=== PATIENT | female | born 1980 | race Caucasian/White ===

== ENCOUNTER → 2020-10-25 11:37 | Outpatient (CLI) | payer BC, SELFPAY ==
--- NOTE | ~2020-10-25 | US_ITS ---
EXAMINATION: US pelvic complete w TV DATE: 10/25/2020 12:06 INDICATION: Uterine hypertrophy Comparison:No prior studies for comparison. TECHNIQUE: Multiple transabdominal and endovaginal sonographic images of the pelvis performed. FINDINGS: The uterus measures 8.9 x 4.3 x 6.4 cm. There are multiple uterine fibroids, largest on the right measuring 3.3 cm maximum dimension. The endometrial complex measures 4.5 mm. There is a complex partially cystic mass in the right adnexa measuring 8.8 x 6 x 5.6 cm. The left ova ry is unremarkable measuring 2.6 x 1.6 x 1.7 cm. There is no free fluid in the pelvis. There are no abnormal masses seen on either side. IMPRESSION: 1. Complex partially cystic 8.8 cm right adnexal mass, likely ovarian. Although this may represent a complex functional cyst, other etiologies such as cystadenoma/cystadenocarcinoma should be considered . Recommend follow-up clinical evaluation. 2: Multiple uterine fibroids, largest measuring 3.3 x 3.1 x 2.7 cm paracentral to the right. Reviewed, dictated and finalized at location B. NESS CASE ANALYST IMPRESSION: 1. Complex partially cystic 8.8 cm right adnexal mass, likely ovarian. Although this may represent a complex functional cyst, other etiologies such as cystade noma/cystadenocarcinoma should be considered. Recommend follow-up clinical eval uation. 2: Multiple uterine fibroids, largest measuring 3.3 x 3.1 x 2.7 cm paracentral to the right.
--- NOTE | ~2020-10-25 | MM_ITS ---
EXAMINATION: MM screening keke BI w kavon HISTORY: Screening mammogram TECHNIQUE: Craniocaudal and mediolateral oblique 3-D tomosynthesis images were obtained and synthetic 2-D images were generated. CAD analysis was submitted and interpreted. COMPARISON: No prior mammogram is available for comparison at this institution. BREAST PARENCHYMAL COMPOSITION: There are scattered areas of fibroglandular density. FINDINGS: There is a 10 mm circumscribed low-density opacity at approximately 6:00 position of the ri ght breast. Likely benign, but diagnostic mammogram and ultrasound are recommended for more definitiv e confirmation. Otherwise there is no evidence of suspicious mass, calcification, or architectural distortion to sugg est malignancy in either breast. IMPRESSION: 1. 10 mm right breast mass at approximately 6:00 2. Diagnostic right mammogram and targeted 6:00 right breast ultrasound are recommended BI-RADS Category 0: Incomplete: Needs additional imaging evaluation. Reviewed, dictated and finalized at location A. TAL PRODUCER IMPRESSION: 1. 10 mm right breast mass at approximately 6:00 2. Diagnostic right mammogram and targeted 6:00 right breast ultrasound are rec ommended BI-RADS Category 0: Incomplete: Needs additional imaging evaluation.
== END ==
PROVIDERS: PCP Internal Medicine; Visit Provider Obstetrics & Gynecology
DX: Z12.31 Encounter for screening mammogram for malignant neoplasm of breast (principal); N85.2 Hypertrophy of uterus; R92.8 Other abnormal and inconclusive findings on diagnostic imaging of breast; D25.9 Leiomyoma of uterus, unspecified
CPT/HCPCS: 76830; 76856; 77063; 77067

== ENCOUNTER 2020-11-14 10:04 | Outpatient (CLI) | payer BC, SELFPAY ==
[2020-11-17 03:26] LABS: CA-125 22 U/mL (<35)
== END 2020-11-14 10:05 | disposition home or self-care (01) ==
PROVIDERS: PCP Internal Medicine; Visit Provider Obstetrics & Gynecology
DX: N83.209 Unspecified ovarian cyst, unspecified side (principal)
CPT/HCPCS: 36415; 86304

== ENCOUNTER 2020-11-15 12:26 | Outpatient (CLI) | payer BC, SELFPAY ==
--- NOTE | ~2020-11-15 | MMUS_ITS ---
EXAMINATION: MM diagnostic mammo unilat RT, US breast RT limited HISTORY: Follow-up right breast mass TECHNIQUE: Additional 3-D tomosynthesis images of the right breast were performed and synthetic 2-D i mages were generated. CAD analysis was submitted and interpreted. High resolution right breast ultras ound was performed. COMPARISON: 10/25/2020 BREAST PARENCHYMAL COMPOSITION: Breast composed of scattered areas of fibroglandular density. FINDINGS: MAMMOGRAPHIC FINDINGS: There is a 9 mm mass in the lower central aspect of the right breast. There are no suspicious calcifi cations or architectural distortion. ULTRASOUND: Limited right breast ultrasound: At 6:00, 5 cm from the nipple, there is an 8 mm cyst corresponding t o the mammographic mass. No other masses identified. IMPRESSION: 1. No evidence for malignancy in the right breast. Benign cysts. 2. Routine yearly screening mammogram and regular clinical breast examination are recommended. BI-RADS Category 2: Benign finding(s). Reviewed, dictated and finalized at location A. ICE TRANSFORMER REPAIR SUPERVISOR IMPRESSION: 1. No evidence for malignancy in the right breast. Benign cysts. 2. Routine yearly screening mammogram and regular clinical breast examination a re recommended. BI-RADS Category 2: Benign finding(s).
== END 2020-11-15 12:27 | disposition home or self-care (01) ==
PROVIDERS: PCP Internal Medicine; Visit Provider Obstetrics & Gynecology
DX: R92.8 Other abnormal and inconclusive findings on diagnostic imaging of breast (principal)
CPT/HCPCS: 76642; 77065

== ENCOUNTER → 2021-03-14 17:12 | Outpatient (CLI) | payer BC, SELFPAY ==
--- NOTE | ~2021-03-14 | US_ITS ---
EXAMINATION: US pelvic complete w TV EXAM DATE: 03/14/2021 17:51 INDICATION: N94.89 - Other specified conditions associated with female. Right ovarian complex cystic mass on prior study TECHNIQUE: Pelvic transabdominal and transvaginal sonogram was performed. There are multiple graysca le and Doppler images available for interpretation. Comparison is made to prior examination from 2020. FINDINGS: Uterus measures 7.0 x 4.9 x 5.0 cm, with several regions consistent with fibroids measurin g up to 4 cm. Endometrial stripe measures 4 mm, within normal limits. There is no free pelvic fluid. Right adnexa: Right ovary measures 8.3 x 6.9 x 7.7 cm, has complex cystic appearance with some region s of shadowing most likely calcification. Given that there is evidence of fluid, soft tissue echogeni city and calcification, this is most likely a teratoma. Noncontrast CT could be confirmatory of that histology but at its size, surgical resection could also be considered. Ovarian vascular flow confirm ed. Left adnexa: The ovary is not identified. There is no adnexal mass. IMPRESSION: Complex cystic right ovarian mass most likely benign dermoid; noncontrast pelvic CT could be confirmatory. Fibroids. Reviewed, dictated and finalized at location A. IMPRESSION: Complex cystic right ovarian mass most likely benign dermoid; nonco ntrast pelvic CT could be confirmatory. Fibroids.
== END ==
PROVIDERS: Visit Provider Obstetrics & Gynecology
DX: N83.201 Unspecified ovarian cyst, right side (principal)
CPT/HCPCS: 76830; 76856

== ENCOUNTER 2021-03-25 18:58 | Emergency (ER) | payer BC, SELFPAY ==
--- NOTE | 2021-03-25 19:00 | ED.EAR ---
HPI - Ear Problem General Chief complaint: Ear Stated complaint: earache Time Seen by Provider: 03/25/21 19:00 Source: patient and RN notes reviewed History of Present Illness HPI Narrative: Patient is a 40-year-old female who presents the urgent care with complaints of left ear pain that started yesterday. Patient denies of any other upper respiratory complaints. Denies any fever, chills, nausea, vomiting. Denies any drainage from the ear. Denies any hearing loss. Patient states that she has not used anything [id number] for her pain. States that she is going out of town tomorrow and she is going to be wearing a helmet for long periods of time and it is painful to the touch . Patient states that she did use Q-tips to the ear last night. No other acute complaints. No acute distress noted. Patient aware of the plan of care. Some parts of this dictation were generated by voice recognition software and may contain typographical and/or grammatical inaccuracies. Related Data Home Medications Medication Instructions Recorded Confirmed albuterol sulfate 90 mcg/actuation 1 puff INHALATION Q4H PRN 10/25/20 11/22/20 aerosol inhaler cetirizine 10 mg capsule 10 mg PO DAILY PRN 10/25/20 11/22/20 montelukast 10 mg tablet 10 mg PO DAILY 10/25/20 11/22/20 Allergies Allergy/AdvReac Type Severity Reaction Status Date / Time No Known Drug Allergies Allergy Unknown Unknown Verified 11/21/20 08:45 Review of Systems Review of Systems: Narrative: CONSTITUTIONAL: Denies fever, chills, or sweats. EYES: Denies visual changes, redness, or discharge. ENT: Denies rhinorrhea, congestion, sore throat. Reports of left otalgia CARDIOVASCULAR: Denies chest pain, palpitations, or edema. RESPIRATORY: Denies cough or dyspnea. GASTROINTESTINAL: Denies abdominal pain, nausea, vomiting, or diarrhea. GENITOURINARY: Denies dysuria or hematuria. SKIN: Denies rash or itching. MUSCULOSKELETAL: Denies back pain, joint pain, or myalgia. NEUROLOGIC: Denies headache, numbness, or weakness. All other systems reviewed are negative, except as documented in HPI. [facility] Past Medical History Medical History (Updated 03/25/21 @ 19:08 by ALFONZO Marks) Asthma High cholesterol Surgical History Surgical History [place] teeth removed Family History Family History Grandparent Breast cancer Sibling Hypertension High cholesterol Social History Social History Smoking status: Never smoker Alcohol intake: current Drinks per week: 3 Substance use: former Comments At the time of my signature, I reviewed and agree with the nursing past medical, surgical, social, and family history. There is no relevant family history pertinent to the patient complaint. Exam Narrative: Exam Narrative: GENERAL: This is a well-nourished, well-developed patient, in no apparent distress. HEAD: normocephalic, atraumatic. EYES: PERRL. Sclera clear/white. Vision is grossly intact. EARS: External ears normal, right auditory canal clear and without drainage, left auditory canal with small abrasion and mild erythema without edema or drainage. TMs normal without perforation. Hearing grossly intact. NOSE: External nose normal with no obvious nasal discharge, nares without redness, no rhinorrhea. THROAT: Mucous membranes moist, posterior pharynx clear. NECK: Neck supple CARDIOVASCULAR: Regular rate and rhythm RESPIRATORY: Clear to auscultation. Breath sounds equal bilaterally. No wheezes, rales, or rhonchi. SKIN: warm, intact with no suspicious lesions or rash, good texture and turgor. NEURO: awake, alert, and oriented to person, place and time. There were no obvious focal neurologic abnormalities. EXTREMITIES: No clubbing, cyanosis, or edema. Course Vital Signs Vital signs: Vital Signs Temper
[2021-03-25 19:03] VITALS: BP 120/84; PULSE 76; RESP 20; TEMP 37.1; O2SAT 100
== END 2021-03-25 19:13 | disposition home or self-care (01) ==
PROVIDERS: Emergency Provider Nurse Practitioner Family; PCP Internal Medicine
DX: H60.92 Unspecified otitis externa, left ear (principal); J45.909 Unspecified asthma, uncomplicated; E78.00 Pure hypercholesterolemia, unspecified
CPT/HCPCS: 99213; G0463

== ENCOUNTER 2021-04-28 13:13 | Emergency (ER) | payer BC, SELFPAY ==
--- NOTE | ~2021-04-28 | XR_ITS ---
EXAMINATION: XR hand RT 2V DATE: 04/28/2021 13:45 INDICATION: Right hand injury. TECHNIQUE: 3 views of right hand were obtained. COMPARISON: None. FINDINGS: Bone alignment is normal. No fracture. Joint spaces are well maintained. IMPRESSION: 1. No fracture. Reviewed, dictated and finalized at location A. IMPRESSION: 1. No fracture.
[2021-04-28 13:22] VITALS: BP 125/81; PULSE 64; RESP 16; TEMP 37.3; O2SAT 100
--- NOTE | 2021-04-28 13:37 | PC.NURSE ---
Radiology at bedside
--- NOTE | 2021-04-28 13:39 | ED.WOUNDLAC ---
HPI - Wound/Laceration General Chief Complaint: Wound/Laceration Stated Complaint: right middle finger injury Time Seen by Provider: 04/28/21 13:31 History of Present Illness HPI narrative: 40 yo female presents for a finger injury. She reports that she got her right middle finger smashed between to large pieces of metal while at work today. She sustained a laceration over the knuckle. She has moderate pain. Full ROM. no numbness or weakness. Related Data Home Medications Medication Instructions Recorded Confirmed albuterol sulfate 90 mcg/actuation 1 puff INHALATION Q4H 10/25/20 11/22/20 aerosol inhaler montelukast 10 mg tablet 10 mg PO DAILY 10/25/20 11/22/20 Allergies Allergy/AdvReac Type Severity Reaction Status Date / Time No Known Allergies Allergy Verified 04/28/21 13:28 Review of Systems Review of Systems: All systems reviewed & are unremarkable except as noted in HPI and below PMFSH Past Medical History Medical History Asthma High cholesterol Surgical History Surgical History [place] teeth removed Family History Family History Grandparent Breast cancer Sibling Hypertension High cholesterol Social History Social History Smoking status: Never smoker Alcohol intake: current Drinks per week: 3 Substance use: former Exam Const: General: healthy appearing, no acute distress and alert Orientation/consciousness: patient oriented x3 HENMT: Head: normal to inspection Resp: Effort & Inspection: normal respiratory effort Auscultation: clear to auscultation bilaterally Cardio: Rate: regular rate Rhythm: regular rhythm Skin: Wounds: wounds noted (1.5 cm laceration over right third PIP) Neuro: General: patient oriented x3 and moves all extremities Speech: normal speech Extrem: General: normal to inspection Other: FULL ROM. Laceration may have punctate opening into the joint Course Vital Signs Vital signs: Vital Signs Temperature 37.3 C 04/28/21 13:22 Pulse Rate 64 04/28/21 13:22 Respiratory Rate 16 04/28/21 13:22 Blood Pressure 125/81 04/28/21 13:22 Pulse Oximetry 100 04/28/21 13:22 Temperature 37.3 C 04/28/21 13:22 Pulse Rate 64 04/28/21 13:22 Respiratory Rate 16 04/28/21 13:22 Blood Pressure 125/81 04/28/21 13:22 Pulse Oximetry 100 04/28/21 13:22 Procedures Laceration Laceration 1: Date: 04/28/21 Site: hand Side (If applicable): right (third finger) Size (cm): 1.5 Description: linear Depth: simple, single layer Local Anesthetic: lidocaine 1% Amount of anesthesia used (mL): 2 Pre-repair: wound explored, irrigated and other (grossly contaminated) ====== Skin Level ====== Skin layer closed with: nylon Size (cm): 5-0 Number of sutures: 3 Technique: simple, interrupted ====== Subcutaneous Layer ====== ====== Muscle Layer ====== ====== Tendon Layer ====== MDM - Wound/Laceration MDM Narrative Medical decision making narrative: I will prescribe antibiotics due to contamination and possible violation of the joint. Imaging Data Radiologist's impression: ITS Impressions Hand X-Ray 04/28/21 13:55 IMPRESSION: 1. No fracture. Discharge Plan Discharge Clinical Impression: Finger laceration Qualifiers: Encounter type: initial encounter Finger: middle finger Damage to nail status: without damage Foreign body presence: without foreign body Laterality: right Qualified Code(s): S61.212A - Laceration without foreign body of right middle finger without damage to nail, initial encounter Patient Disposition: Home, Self-Care Condition: Stable Instructions: Antibiotic Form, Laceratio
[2021-04-28] MEDS: TETANUS,DIPHTHERIA,AC PERTUSSIS ADULT (0.5 ML) BOOSTRIX IM (13:44)
[2021-04-28] MEDS: CEPHALEXIN 500 MG CAPSULE PO (14:44)
== END 2021-04-28 15:00 | disposition home or self-care (01) ==
PROVIDERS: Emergency Provider Emergency Medicine; PCP Internal Medicine
DX: S61.212A Laceration without foreign body of right middle finger without damage to nail, initial encounter (principal); E78.00 Pure hypercholesterolemia, unspecified; Z23 Encounter for immunization; W23.0XXA Caught, crushed, jammed, or pinched between moving objects, initial encounter
CPT/HCPCS: 12001; 73120; 90471; 90715; 99283; A9270

== ENCOUNTER 2021-11-22 21:44 | Emergency (ER) | payer BC, SELFPAY ==
[2021-11-22] VITALS (15 sets, daily range): BP systolic 114–147; BP diastolic 67–86; PULSE 84–111; RESP 12–21; TEMP 36.8; O2SAT 95–99
--- NOTE | ~2021-11-22 | XR_ITS ---
EXAMINATION: XR chest 1V portable DATE: 11/22/2021 22:26 INDICATION: Asthma presenting with shortness of breath and wheezing TECHNIQUE: frontal view of the chest was obtained. COMPARISON: Chest radiograph dated 05/31/2017 FINDINGS: Normal lung volumes. No focal airspace opacities, pulmonary edema, pleural effusion or pneumothorax. The cardiomediastinal silhouette is normal. Visualized bones and soft tissues are unremarkable. IMPRESSION: 1. No acute cardiopulmonary disease. Reviewed, dictated and finalized at location A. ER
--- NOTE | 2021-11-22 22:01 | ED.ASTHMA ---
HPI - Asthma General Chief Complaint: Asthma Stated Complaint: cough, sob, sinus headache, Time Seen by Provider: 11/22/21 21:53 Source: patient and RN notes reviewed Mode of arrival: ambulatory Limitations: no limitations History of Present Illness HPI Narrative: This is a 41 year old female with history of asthma who presents for evaluation of cough, wheezing and shortness of breath. Last night she noticed dry cough due to tickle in her throat. She states multiple people in her family have had dry cough. She is also complaining sinus congestion and drainage. This afternoon, she noticed she was short of breath at work. She has been using her albuterol inhaler without relief. She denies chest pain, fever, chills , nausea, vomiting, sore throat. She reports allergy to cats and dogs but she denies recent contact with anything to exacerbated her asthma. Related Data Home Medications Medication Instructions Recorded Confirmed albuterol sulfate 90 mcg/actuation 1 puff INHALATION Q4H 10/25/20 10/31/21 aerosol inhaler montelukast 10 mg tablet 10 mg PO DAILY 10/25/20 10/31/21 cetirizine 10 mg capsule 10 mg PO DAILY PRN 10/31/21 10/31/21 Allergies Allergy/AdvReac Type Severity Reaction Status Date / Time No Known Allergies Allergy Verified 10/31/21 09:42 Review of Systems Review of Systems: All systems reviewed & are unremarkable except as noted in HPI and below PMFSH Past Medical History Medical History Asthma High cholesterol Surgical History Surgical History H/O ovarian cystectomy History of partial hysterectomy [place] teeth removed Family History Family History Grandparent Breast cancer Sibling Hypertension High cholesterol Social History Social History Smoking status: Never smoker Alcohol intake: current Drinks per week: 3 Substance use: former Exam Const: General: alert Orientation/consciousness: patient oriented x3 Other: mild distress , wheezing HENMT: Head: normocephalic and atraumatic Ears: TM's normal bilaterally Face and sinus: sinuses nontender and face symmetric Mouth: Yes Normal oral and palatal mucosa present, Yes lip normal, Yes oropharynx normal and Yes moist mucous membranes Eyes: EOM: EOMs intact bilaterally Chest: Chest palpation & inspection: normal inspection of the chest Resp: Effort & Inspection: normal respiratory effort, not labored and not tachypneic Auscultation: wheezes expiratory wheezes, inspiratory wheezes and throughout and diminished lung sounds Cardio: Rate: regular rate Rhythm: regular rhythm Heart sounds: no murmurs GI: GI Palp: Yes Soft to palpation, No Tenderness to palpation present (GI) and No Guarding due to palpation present (GI) Auscultation: normal bowel sounds Skin: General skin exam: normal color Lesions: no lesions Neuro: General: patient oriented x3, moves all extremities and CN's II-XI intact bilaterally Psych: Mental Status: mental status grossly normal Affect: normal affect Course Reevaluation(s) Reevaluation #1: Patient states she feels better. Lung sounds are now clear. Date: 11/22/21 Time: 22:50 Reevaluation #2: PAtient still feels better. No wheezing. I discussed discharge plan. Date: 11/22/21 Time: 23:57 Vital Signs Vital signs: Vital Signs Temperature 98.2 F 11/22/21 21:52 Pulse Rate 86 11/22/21 21:52 Respiratory Rate 20 11/22/21 21:52 Blood Pressure 147/82 H 11/22/21 21:52 Pulse Oximetry 98 11/22/21 21:52 Temperature 98.2 F 11/22/21 21:52 Pulse Rate 87 11/23/21 00:00 Respiratory Rate 15 11/23/21 00:00 Blood Pressure 118/67 11/22/21 23:46 Pulse Oximetry 94 11/23/21 00:00 MDM - Asthma Lab Data Labs: Lab Results 11/22/21 Range/Units
[2021-11-22] MEDS: predniSONE 20 MG TABLET 60 MG PO (22:08)
[2021-11-22] MEDS: IPRATROPIUM BR 0.02% INH SOLN 0.5 MG/2.5 ML VIAL 1 MG INHALATION (22:14)
[2021-11-22] MEDS: ALBUTEROL SULFATE NEB 2.5 MG/0.5 ML INH 10 MG INHALATION (22:15)
[2021-11-22 23:01] LABS: SARS-CoV-2 RNA PCR Negative
[2021-11-23] VITALS: PULSE 87; RESP 15; O2SAT 94
== END 2021-11-23 00:13 | disposition home or self-care (01) ==
PROVIDERS: Emergency Provider General Practice
DX: J45.21 Mild intermittent asthma with (acute) exacerbation (principal); E78.5 Hyperlipidemia, unspecified
CPT/HCPCS: 71045; 94640; 99283; C9803; J7512; U0003; U0005